=== PATIENT | female | born 1995 | race African-American/Black ===

== ENCOUNTER 2022-06-29 08:38 | Emergency (ER) | payer SELFPAY ==
[2022-06-29 08:53] VITALS: BP 139/110; PULSE 88; RESP 20; TEMP 36.8; O2SAT 100
--- NOTE | 2022-06-29 09:27 | ED.FEMALEGU ---
HPI - Female Genitourinary General Chief complaint: Urogenital-Female Stated complaint: Abdominal Pain/ Time Seen by Provider: 06/29/22 09:27 Source: patient and RN notes reviewed Mode of arrival: ambulatory Limitations: no limitations History of Present Illness HPI Narrative: 27 y/o female presented for c/o mild left abdominal discomfort and pink tinged urine in the setting of positive urine tests (x4) at home 06/24/22. Pt is [id number]. Endorses mild bleeding this morning, stating urine and tissue was pink. Denies n/v/d/f/c. Not taking any medication. Does not have obgyn, does not have blood test confirming . Hx right ovarian cyst found about 3 years ago, states she dc'd IUD due to it increasing in size, but has not f/u. Moved from [place]. Related Data Home Medications Medication Instructions Recorded Confirmed No Home Medications 06/29/22 06/29/22 Allergies Allergy/AdvReac Type Severity Reaction Status Date / Time No Known Allergies Allergy Verified 06/29/22 09:17 Review of Systems Review of Systems: CONSTITUTIONAL: Denies body aches, fever, chills, or sweats. CARDIOVASCULAR: Denies chest pain, palpitations, or edema. RESPIRATORY: Denies cough or dyspnea. GASTROINTESTINAL: Denies nausea, vomiting, or diarrhea. GENITOURINARY: denies dysuria, frequency, urgency, hematuria, flank pain SKIN: Denies rash, itching, or wounds. MUSCULOSKELETAL: Denies back pain or myalgia. PMFSH Comments At time of signature, I have reviewed and agree with nursing past medical, surgical, social and family history unless otherwise noted. Please see nursing chart for further information. There is no relevant family history pertinent to the presenting complaint Exam Narrative: GENERAL: Well-appearing EYES: EOMI. . ENT: Mucous membranes pink and moist. CHEST: Clear to auscultation. HEART: Regular rate and rhythm. ABDOMEN: Soft, large, nontender, nondistended, normal active bowel sounds. No CVA tenderness SKIN: Warm, dry, no rash. NEURO: No focal deficits. Alert and oriented x3. Gait steady. PSYCH: Normal affect. Course Course Emergency Course: Patient is aware of diagnosis, understands and agrees to treatment plan. Anticipatory guidance given. Patient agrees to follow-up as directed and is aware of reasons to seek care at the emergency department. Portions of this record may have been created with voice recognition software Level of Care: Express Care Visit Vital Signs Vital signs: Vital Signs Temperature 98.3 F 06/29/22 08:53 Pulse Rate 88 06/29/22 08:53 Respiratory Rate 20 06/29/22 08:53 Blood Pressure 139/110 H 06/29/22 08:53 Pulse Oximetry 100 06/29/22 08:53 Oxygen Delivery Room Air 06/29/22 08:53 Temperature 98.3 F 06/29/22 08:53 Pulse Rate 88 06/29/22 08:53 Respiratory Rate 20 06/29/22 08:53 Blood Pressure 139/110 H 06/29/22 08:53 Pulse Oximetry 100 06/29/22 08:53 Oxygen Delivery Room Air 06/29/22 08:53 Reviewed Transfer Transfered to: [place] Transportation: Other ([place]) Transfer rationale: Pt is agreeable to transfer. Requests transfer to [facility] via private vehicle/ ambulance. Risks of transportation reviewed with pt including injury, worsening of condition and . v/u. will be driving pt; Report called to hospital, spoke with Dr Gonzalez, accepting physician. Pt is in stable condition at time of transfer. Advised to remain NPO and go directly to the hospital. MDM - Female Genitourinary MDM Narrative Medical decision making narrative: urine preg negative. urine with 3+ blood. Patient is notified of the results. v/u. Patient remains smiling and pleasant throughout the encounter. Given report of 4 positive tests and reported abdominal pain and vaginal bleeding, advised transfer to ER, requests [facility] Differential Diagnosis Differential diagnosis: Likely urinary tract infe
== END 2022-06-29 10:00 | disposition short-term general hospital (02) ==
PROVIDERS: Emergency Provider Nurse Practitioner Family
DX: Z32.02 Encounter for pregnancy test, result negative (principal); N93.9 Abnormal uterine and vaginal bleeding, unspecified
CPT/HCPCS: 81003; 81025; 99212; G0463

== ENCOUNTER 2022-06-29 10:26 | Emergency (ER) | payer SELFPAY ==
--- NOTE | ~2022-06-29 | US_ITS ---
EXAMINATION: US pelvic complete w TV DATE: 06/29/2022 13:18 INDICATION: Spotting. Abdominal cramping. Negative test in the emergency department. TECHNIQUE: Multiple transabdominal and transvaginal sonographic images of the pelvis were obtained. COMPARISON: None. FINDINGS: TRANSABDOMINAL ULTRASOUND: The uterus measures 6.0 x 3.3 x 3.5 cm. There is no free fluid in the pelvis. TRANSVAGINAL ULTRASOUND: The endometrial complex measures 3 mm in thickness. The right ovary measures 3.0 x 2.3 x 2.7 cm. The left ovary measures 2.9 x 1.7 x 2.1 cm. IMPRESSION: 1. Normal pelvis. Reviewed, dictated and finalized at location A. IMPRESSION: 1. Normal pelvis.
[2022-06-29 10:41] VITALS: BP 137/93; PULSE 72; RESP 20; TEMP 36.5; O2SAT 100
[2022-06-29 11:46] LABS: Basophils Percent Auto 0.3 % (0.2-1.2); Eosinophils Absolute Auto 0.1 K/mm3 (0-0.3); Hematocrit 39.6 % (37.0-47.0); Hemoglobin 12.8 g/dL (12.0-15.0); Immature Granulocyte Absolute 0.01 K/mm3 (0.00-0.031); Immature Granulocyte Percent A 0.2 % (0-0.5); Lymphocytes Percent Auto 27.7 % (18.3-44.2); Mean Corpuscular HGB Conc 32.3 g/dl (32-36); Mean Corpuscular Hemoglobin 28.1 pg (26-34); Mean Corpuscular Volume 86.8 fl (80-100); Mean Platelet Volume 11.3 fl (7.4-10.4); Monocytes Absolute Auto 0.4 K/mm3 (0.1-0.6); Monocytes Percent Auto 6.7 % (2.6-8.5); Neutrophils Absolute Auto 3.7 K/mm3 (1.3-6.7); Neutrophils Percent Auto 64.1 % (45.5-73.1); Platelet Count Result 266 k/mm3 (150-375); Red Blood Count 4.56 M/mm3 (4.2-5.4); White Blood Count 5.8 K/mm3 (4.5-10.0)
--- NOTE | 2022-06-29 11:55 | ED.PREGNANCY ---
HPI - General Chief complaint: Vaginal Bleeding Stated complaint: spotting, positive Time Seen by Provider: 06/29/22 11:46 History of Present Illness HPI Narrative: Patient is a 27-year-old female with a history of a previous elective here for evaluation of vaginal spotting in the setting of 4 positive home tests last week. Patient states that she started spotting today and had some left-sided mild cramping. Seen at urgent care, urine there was negative, was sent to ED for blood work. No fevers, chills, nausea, vomiting. Related Data Home Medications Medication Instructions Recorded Confirmed No Home Medications 06/29/22 06/29/22 Allergies Allergy/AdvReac Type Severity Reaction Status Date / Time No Known Allergies Allergy Verified 06/29/22 09:17 Review of Systems Review of Systems: Gen: Denies fevers or chills Eyes: Denies eye pain or visual change ENT: Denies congestion Respiratory: Denies shortness of breath or cough CV: Denies chest pain or palpitations GI: Reports mild abdominal pain. Denies nausea, emesis or diarrhea : reports vaginal spotting. Denies burning, urgency, frequency or hematuria Musculoskeletal: Denies back pain or muscle pain Neuro: Denies numbness, tingling, weakness or focal weakness Skin: Denies rash Except as documented, all other systems reviewed and negative Exam Narrative: APPEARANCE: Well appearing, no pain in distress, well-nourished. Head: Normocephalic and atraumatic. EYES: PERRLA/EOMI, conjunctivae clear NOSE: No nasal drainage EARS: External ear normal in appearance THROAT: Oropharynx is clear. Mucous membranes are moist. NECK: Supple. No adenopathy, no masses. RESPIRATORY: Airway patent, respirations nonlabored. Clear to auscultation bilaterally, no rales, rhonchi, wheezing. CARDIOVASCULAR: Regular rate and rhythm without murmurs, rubs, or gallops. ABDOMINAL: Normoactive bowel sounds. Soft, nontender, nondistended. No rebound tenderness or guarding. MUSCULOSKELETAL: Extremities are warm and well-perfused. Moves all extremities well. No edema. NEURO: Normal speech. No focal neurologic deficits. SKIN: Skin is warm and dry. No rashes. PSYCHIATRIC: Normal affect/mood. Course Vital Signs Vital signs: Vital Signs Temperature 97.7 F 06/29/22 10:41 Pulse Rate 72 06/29/22 10:41 Respiratory Rate 20 06/29/22 10:41 Blood Pressure 137/93 H 06/29/22 10:41 Pulse Oximetry 100 06/29/22 10:41 Oxygen Delivery Room Air 06/29/22 10:41 Temperature 97.7 F 06/29/22 10:41 Pulse Rate 80 06/29/22 13:37 Respiratory Rate 16 06/29/22 13:37 Blood Pressure 142/84 H 06/29/22 13:37 Pulse Oximetry 98 06/29/22 13:37 Oxygen Delivery Room Air 06/29/22 10:41 MDM - OB/Uterine Contractions MDM Narrative Medical decision making narrative: 27-year-old female here for evaluation of vaginal spotting and light vaginal cramping in the setting of positive home test but a negative test at urgent care today. She is nontoxic-appearing and has normal vital signs, no abdominal tenderness on exam. Hemoglobin/ hematocrit are normal. Her urine again is negative. Her quant is very slightly positive at 4.2. Patient is O+, no need for RhoGAM. Pelvic ultrasound does not show any evidence of ectopic . Patient is likely miscarrying. Declined pelvic exam at this time. 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 Lab Data Result diagrams: 06/29/22 11:26 06/29/22 11: Labs: Lab Results 06/29/22 06/29/22 06/29/22 Range/Units 11:26 11:26 11:26 WBC 5.8 (4.5-10.0) K/mm3 RBC 4.56 (4.2-5.4) M/mm3 Hgb 12.8 (12.0-15.0) g/dL Hct 39.6 (37.0-47.0) % MCV 86.8 (80-100) fl MCH 28.1 (26-34) pg MCHC 32.3 (32-36) g/dl RDW 13.0 (11.5-14.5) % Plt Count 266 (150-375) k/mm3 MPV 11.3 H (7.4-10.4) fl Immature
[2022-06-29 11:59] LABS: Anion Gap 13 mmol/L (8-16); Blood Urea Nitrogen 9 mg/dL (7-17); Calcium 8.9 mg/dL (8.4-10.2); Carbon Dioxide 25 mmol/L (22-30); Chloride 101 mmol/L (98-107); Estimated CRCL calculation 113 ml/min; Estimated Glomerular Filt Rate > 60; Glucose 87 mg/dL (65-110); Sodium 139 mmol/L (137-145)
[2022-06-29 13:37] VITALS: BP 142/84; PULSE 80; RESP 16; O2SAT 98
== END 2022-06-29 13:40 | disposition home or self-care (01) ==
PROVIDERS: Emergency Provider Emergency Medicine
DX: N93.9 Abnormal uterine and vaginal bleeding, unspecified (principal)
CPT/HCPCS: 36415; 76830; 76856; 80048; 81025; 84702; 85025; 85461; 86850; 86900; 86901; 99284

== ENCOUNTER 2022-11-15 12:00 | Emergency (ER) | payer MEDICAID, SELFPAY ==
[2022-11-15 12:07] VITALS: BP 144/105; PULSE 93; RESP 20; TEMP 36.3; O2SAT 99
[2022-11-15 12:42] LABS: Add Urine Microscopic? NO; Appearance Urine Clear (Clear); Bilirubin Urine Negative (Negative); Blood Urine Negative (Negative); Color Urine Yellow (Yellow); Glucose Urine UA Negative (Negative); Ketones Urine Negative (Negative); Leukocyte Esterase Ur Negative LEU/UL (Negative); Nitrate Urine Negative (Negative); Protein Urine Negative (Negative); Specific Grav Ur 1.015 (1.001-1.035); Urobilinogen Urine 0.2 mg/dL (<2.0)
--- NOTE | 2022-11-15 14:04 | ED.GENADULT ---
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 She reports her last menstrual cycle was in August. She denies any abdominal pain, fever, bleeding. She reports intermittent nausea. She states that she was here in ER with a friend and so she came to be seen due to lack of period. She reported frequent urination. She has been told in the past that she has ovarian cyst. Related Data Home Medications Medication Instructions Recorded Confirmed No Home Medications 06/29/22 06/29/22 Allergies Allergy/AdvReac Type Severity Reaction Status Date / Time No Known Allergies Allergy Verified 06/29/22 09:17 Review of Systems Constitutional: Constitutional: Denies weakness Cardiovascular: Cardiovascular: Denies syncope, Denies rapid heart rate, Denies irregular heart rhythm, Denies leg edema and Denies dyspnea Respiratory: Respiratory: Denies chest congestion, Denies hemoptysis, Denies excessive phlegm production and Denies dyspnea Gastrointestinal: Gastrointestinal: Denies abdominal pain, Denies hematochezia, Denies diarrhea and Denies vomiting Genitourinary: Genitourinary: Denies hematuria and Denies dysuria Musculoskeletal: Musculoskeletal: Denies joint swelling, Denies loss of height and Denies muscle weakness Neurologic: Denies syncope, Denies focal weakness and Denies weakness PMFSH Past Medical History Medical History (Updated 11/15/22 @ 14:12 by Annemarie Cabrales MD) Ovarian cyst Surgical History Surgical History (Updated 11/15/22 @ 14:09 by Annemarie Cabrales MD) No pertinent past surgical history Social History Social History (Updated 11/15/22 @ 14:09 by Annemarie Cabrales MD) Smoking status: Never smoker Exam Const: General: no acute distress and alert Nutritional Appearance: well nourished Orientation/consciousness: patient oriented x3 HENMT: Head: normal to inspection Eyes: EOM: EOMs intact bilaterally Resp: Effort & Inspection: normal respiratory effort Auscultation: clear to auscultation bilaterally Cardio: Rate: regular rate Rhythm: regular rhythm Heart sounds: no murmurs GI: GI Palp: Yes Soft to palpation, No Tenderness to palpation present (GI), No Guarding due to palpation present (GI) and No Rigid due to palpation Auscultation: normal bowel sounds Skin: General skin exam: normal color Rashes: no rashes Wounds: no wounds Neuro: General: patient oriented x3, moves all extremities and CN's II-XI intact bilaterally Extrem: General: normal to inspection Psych: Mental Status: mental status grossly normal Affect: normal affect Attitude: cooperative Course Reevaluation(s) Reevaluation #1: Patient does not have any pain. test negative. She may have ovarian cyst but she is not having any pain so will have follow up as outpatient with [employer]IST. she is agreeable to plan Date: 11/15/22 Time: 14:09 Vital Signs Vital signs: Vital Signs Temperature 97.3 F L 11/15/22 12:07 Pulse Rate 93 11/15/22 12:07 Respiratory Rate 20 11/15/22 12:07 Blood Pressure 144/105 H 11/15/22 12:07 Pulse Oximetry 99 11/15/22 12:07 Oxygen Delivery Room Air 11/15/22 12:07 Temperature 97.3 F L 11/15/22 12:07 Pulse Rate 93 11/15/22 12:07 Respiratory Rate 20 11/15/22 12:07 Blood Pressure 144/105 H 11/15/22 12:07 Pulse Oximetry 99 11/15/22 12:07 Oxygen Delivery Room Air 11/15/22 12:07 Medical Decision Making Vital Signs Vital Signs: Vital Signs Temperature 97.3 F L 11/15/22 12:07 Pulse Rate 93 11/15/22 12:07 Respiratory Rate 20 11/15/22 12:07 Blood Pressure 144/105 H 11/15/22 12:07 Pulse Oximetry 99
--- NOTE | 2022-11-15 14:05 | PC.NURSE ---
Dr. lockhart to er triage bay 2 to see patient.
== END 2022-11-15 14:25 | disposition home or self-care (01) ==
LOC: ANHED 14:18
PROVIDERS: Emergency Provider General Practice
DX: N91.2 Amenorrhea, unspecified (principal)
CPT/HCPCS: 81003; 81025; 99283

== ENCOUNTER 2023-01-17 11:45 | Emergency (ER) | payer OTHER, MEDICAID, SELFPAY ==
[2023-01-17 11:48] VITALS: BP 144/77; PULSE 112; RESP 20; TEMP 36.2; O2SAT 98
--- NOTE | 2023-01-17 12:24 | ED.URI ---
HPI - URI/Sore Throat General Chief Complaint: Upper Respiratory Infection Stated Complaint: cough Time Seen by Provider: 01/17/23 12:23 Source: patient Mode of arrival: ambulatory Limitations: no limitations History of Present Illness HPI Narrative: Patient presents with cold symptoms started 2 to 3 days ago, step daughter had similar symptoms got better in 2 days, her main complaint at this time is coughing and sore throat. Patient could not go to work today. Related Data Allergies Allergy/AdvReac Type Severity Reaction Status Date / Time No Known Allergies Allergy Verified 06/29/22 09:17 Review of Systems Review of Systems: All systems reviewed & are unremarkable except as noted in HPI and below PMFSH Past Medical History Medical History Ovarian cyst Surgical History Surgical History No pertinent past surgical history Social History Social History Smoking status: Never smoker Exam Narrative: General appearance: Well-developed, well-nourished Skin: Normal color Head: Normocephalic, nontraumatic Eyes: Clear conjunctiva ENT: Oropharynx normal, ears normal, nose normal Neck: Supple, nontender Chest and respiratory: Airway patent, no respiratory distress, no accessory muscle use Heart: Regular rate/rhythm Abdomen: Soft, nontender, no organomegaly, quiet bowel sounds Vascular: Normal peripheral pulses, normal capillary refill. Musculoskeletal: Normal range of motion, nontender back Neurologic: Alert and oriented ?3, GLOBAL COORDINATOR is normal as tested, no gross motor deficit Course Vital Signs Vital signs: Vital Signs Temperature 36.2 C L 01/17/23 11:48 Pulse Rate 112 H 01/17/23 11:48 Respiratory Rate 20 01/17/23 11:48 Blood Pressure 144/77 H 01/17/23 11:48 Pulse Oximetry 98 01/17/23 11:48 Oxygen Delivery Room Air 01/17/23 11:48 Temperature 36.2 C L 01/17/23 11:48 Pulse Rate 112 H 01/17/23 11:48 Respiratory Rate 20 01/17/23 11:48 Blood Pressure 144/77 H 01/17/23 11:48 Pulse Oximetry 98 01/17/23 11:48 Oxygen Delivery Room Air 01/17/23 11:48 MDM - URI/Sore Throat MDM Narrative Medical decision making narrative: Patient presents with upper respiratory viral infection symptoms, recent sick contact, work-up today showed that the patient is negative for COVID, flu and RSV. Patient will be discharged on Mucinex and excused of work today and tomorrow. Differential Diagnosis Differential diagnosis: Likely upper respiratory infection and viral infection Lab Data Labs: Lab Results 01/17/23 Range/Units 12:31 Influenza A (RT-PCR) Negative (Negative) Influenza B (RT-PCR) Negative (Negative) RSV (RT-PCR) Negative (Negative) SARS-CoV-2 RNA (RT-PCR) Negative (Negative) Critical Care Time Critical Care Time Critical Care Time: No Discharge Plan Discharge Clinical Impression: Upper respiratory infection Qualifiers: URI type: unspecified URI Qualified Code(s): J06.9 - Acute upper respiratory infection, unspecified Patient Disposition: Home, Self-Care Condition: Stable Instructions: Antibiotic Form, Cold Symptoms (ED) Additional Instructions: Return if symptoms are worsening , call your family physician for appointment, take Tylenol as as needed for aches and pain, continue home medications. Prescriptions: New Mucinex Fast-Max [id number] mg capsule 2 tablet PO Q4-6H PRN (Reason: cold symptoms) Qty: 90 0RF Follow-up/Referrals: PHYSICIAN,ICT SALES REPRESENTATIVE [Non-Staff] - Blaine Márquez,
[2023-01-17 13:34] LABS: Influenza A QL RT-PCR Negative (Negative); Influenza B QL RT-PCR Negative (Negative); RSV RNA, RT-PCR Negative (Negative); SARS-CoV-2 RNA PCR Negative (Negative)
[2023-01-17 13:59] VITALS: BP 137/93; PULSE 91; O2SAT 100
== END 2023-01-17 14:13 | disposition home or self-care (01) ==
PROVIDERS: Emergency Provider Emergency Medicine
DX: J06.9 Acute upper respiratory infection, unspecified (principal); Z20.822 Contact with and (suspected) exposure to COVID-19
CPT/HCPCS: 87637; 99283

== ENCOUNTER 2024-10-08 13:03 | Emergency (ER) | payer OTHER, SELFPAY ==
--- NOTE | ~2024-10-08 | US_ITS ---
EXAM: PELVIC ULTRASOUND HISTORY: left cyst r/o torsion COMPARISON: CT examination of the abdomen and pelvis, performed the same day approximately 1 hour ear lier. FINDINGS: UTERUS: 9.1 x 3.8 x 4.2 cm. The uterus is anteverted and anteflexed. The endometrial complex measures 9.7 mm. RIGHT OVARY: The right ovary is unremarkable in echogenicity and size measuring 2.8 x 2.2 x 4.2 cm. Dopplerable flow is identified. LEFT OVARY: The left ovary measures 5.6 x 3.7 x 4.3 cm Dopplerable flow is identified. A single anechoic avascular focus is identified within the left ovary measuring 37 x 32 x 36 mm, repr esenting a simple cyst (perhaps an involuting follicle) for which no further follow-up is needed. No free fluid is identified within the pelvis. IMPRESSION: Simple cyst within the left ovary for which no further follow-up is needed. Reviewed, dictated and finalized at location A. E MOUNTER
--- NOTE | ~2024-10-08 | CT_ITS ---
EXAMINATION: CT abdomen pelvis wo con DATE: 10/08/2024 14:58 INDICATION: Abdominal pain at section scar. TECHNIQUE: Computed tomography (CT) of the abdomen and pelvis was performed without intravenous contr ast. Automated exposure control and iterative reconstruction technique were employed. The dose-length product was 1311.68 mGy-cm. COMPARISON: Pelvis ultrasound 06/29/2022 FINDINGS: The visualized portions of the lung bases are clear without pneumonia or pleural effusion. The heart size is normal. No pericardial effusion. The liver, gallbladder, spleen, pancreas, adrenal glands, and kidneys are normal. There are no dilated loops of bowel. The appendix is normal. There is a 4.1 cm cyst in the left ovary. The left ovary is anteriorly positioned at the midline. There are n o pathologically enlarged lymph nodes. There is no ascites. The bones are unremarkable. IMPRESSION: 1. 4.1 cm cyst in the left ovary, likely a follicular cyst. Torsion is not excluded. Consider pelvis ultrasound. Reviewed, dictated and finalized at location A. L DRIVER IMPRESSION: 1. 4.1 cm cyst in the left ovary, likely a follicular cyst. Torsion is not excl uded. Consider pelvis ultrasound.
--- OUTSIDE RECORDS SUMMARY | 2024-10-08 13:52 | XMS_ITS | Clinical Summary ---
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 Name Role Phone Leela Osborne DO Unavailable [phone] No, Physician Primary Care Provider [phone] Allergies No known active allergies Medications ondansetron ODT (ZOFRAN-ODT) 4 mg disintegrating tablet Take 1 tablet (4 mg total) by mouth every 8 (eight) hours as needed for nausea or vomiting 30 tablet 1 05/09/20 23 Active vit no.124/iron/folic ( VITAMIN ORAL) Take by mouth Active docusate sodium (COLACE) 100 mg capsuleIndications :constipation,Stoo l Softener Take 1 capsule (100 mg total) by mouth 2 (two) times a day 60 capsule 1 11/19/19 24 Active HYDROcodone-acetam inophen (NORCO) 5-325 mg per tabletIndications: Pain Take 1 tablet by mouth every 4 (four) hours as needed for pain 20 tablet 11/19/19 24 Active ibuprofen (ADVIL,MOTRIN) 600 mg tabletIndications: Cramps Take 1 tablet (600 mg total) by mouth every 6 (six) hours as needed for pain 60 tablet 1 11/19/19 24 Active promethazine-DM (PROMETHAZINE-DM) 1.25-3 mg/mL syrupIndications:A cute viral syndrome Take 5 mL by mouth 4 (four) times a day as needed for cough (And runny nose) Collaborating physician Romeo Lainez MD 118 mL 05/21/20 Active naproxen (NAPROSYN) 500 mg tabletIndications: Acute viral syndrome Take 1 tablet (500 mg total) by mouth 2 (two) times a day with meals P.r.n. pain and/or fever. Collaborating physician Romeo Lainez MD 20 tablet 05/21/20 Active guaiFENesin (ROBITUSSIN) syrup 100 mg/5 mL Take 5-10 mL (100-200 mg total) by mouth every 4 (four) hours as needed for cough 60 mL 06/24/20 Active Active Problems Problem Noted Date Diagnosed Date Acute viral syndrome 05/21/2024 Failed medical induction of labor 11/07/2023 growth restriction antepartum 10/19/2023 Class 3 severe obesity witho ut serious comorbidity with body mass index (BMI) of 40.0 to 44.9 in adult 06/16/2023 Assessment & Plan (06/16/2023 4:59 PM CDT): Doing well. BMI: 43.4 Obese) Dietary and exercise recommendations given today. Recommend exercise at least 30 minutes moderate to vigorous exercise and some strength training most days of the week. (minimum 150 minutes weekly) Discussed MyPlate recommendations and increasing fruits and vegetables Should continue to eat smaller portions. Goal for weight gain during <10lbs Rubella non-immune status, antepartum 05/11/2023 Overview (05/11/2023): Plan for MMR PP Maternal varicella, non-immune 05/11/2023 Encounter for supervision of normal in first trimester 05/09/2023 Overview (10/19/2023): Dated by 9w6d PNL: O+/NI/-/-, NR, Hep C NR GC/CT: neg UCx: neg Pap: NILM Genetics: neg quad Cyst of ovary 03/15/2023 Assessment & Plan (03/15/2023 5:23 PM CDT): History of ovarian cyst. Will order ultrasound to re-evaluate. Patient has been referred to gynecology for fertility concerns, routine Pap and ovarian cyst Resolved Problems Problem Noted Date Diagnosed Date Resolved Date Acute viral syndrome 05/05/2023 023 Folliculitis 03/21/2023 05/09/2023 Assessment & Plan (03/21/2023 3:24 PM CDT): Bump ro R breast larger and more painful in last 2 weeks. Assessment as noted above. Rxd Keflex as directed. Keep skin clean and dry. Warm compresses may help also. Call if symptoms do not resolve with keflex. Annual physical exam 03/15/2023 023 Assessment & Plan (03/15/2023 5:24 PM CDT): Doing well. BMI: 43.4 (Obese) Routine labs ordered -BMP, Lipid, TSH, varicella titer Preventative Screening Due: Pap Smear due referred to [facility] Dietary and exercise recommendations given today. Recommend exercise at least 30 minutes moderate to vigorous exercise and some strength training most days of the week. (minimum 150 minutes weekly) Discussed MyPlate recommendations and increasing fruits and vegetables Vaccines due - TDAP, HPV RTC annually for f/u Obesity affecting in first trimester 03/15/2023 11/16/2023 Overview (05/09/2023): BMI 43 at NOB. Moderate risk factor for Pre-E as is being a nullip. Discussed ASA for Pre-E PPx, to begin at 12 weeks. Will need serial growth ultrasounds and testing beginning at 34 weeks. Encounters Date Type Department Care Team Description 08/04/2024 12:20 AM TOOLROOM CHECKER - 08/04/2024 3:52 AM TOOLROOM CHECKER Emergency [facility] Emergency Department [address] [place] [address] Fredo Childress MD Acute left-sided back pain, unspecified back location (Primary Dx) Discharge Disposition: Discharge to home or self care from Last 3 Months Immunizations Name Administration Dates Next Due MMR 11/19/2023 Medical History Medical History Date Comments Obesity Obesity affecting in first trimester BMI 43 at NOB. Moderate risk factor for Pre-E as is being a nullip. Discussed ASA for Pre-E PPx, to begin at 12 weeks. Will need serial growth ultrasounds and testing beginning at 34 weeks. Social History Tobacco Use Types Packs/Day Years Used Date Smoking Tobacco: Never Passive Smoke Exposure: Past Smokeless Tobacco: Never Tobacco Cessation:Counseling Given: Not Answered Alcohol Use Standard Drinks/Week Comments Yes 0 (1 standard drink = 0.6 oz pur e alcohol) Social Connection and Isolat ion Panel [NHANES] Answer Date Recorded In a typical week, how many times do you talk on the phone with family, friends, or neighbors? More than three times a week 11/15/2023 How often do you get togethe r with friends or relatives? More than three times a week 11/15/2023 How often do you attend chur or scientology services? Patient declined 11/15/2023 Do you belong to any clubs o r organizations such as shinto groups, unions, fraternal or athletic groups, or school groups? Patient declined 11/15/2023 How often do you attend meet ings of the clubs or organizations you belong to? Patient declined 11/15/2023 Are you , , di vorced, , never , or living with a partner? Living with partner 11/15/2023 AUDIT-C Answer Date Recorded Q1: How often do you have a drink containing alcohol? Never 11/15/2023 Q2: How many drinks containi ng alcohol do you have on a typical day when you are drinking? Patient does not drink Q3: How often do you have si x or more drinks on one occasion? Never 11/15/2023 Overall Financial Resource Strain (CARDIA) Answe r Date Recorded How hard is it for you to pa y for the very basics like food, housing, medical care, and heating? Somewhat hard 11/15/2023 PHQ-2 Answer Date Recorded PHQ-2 Total Score (If total score is 3 or more points, staff should administer the PHQ-9) 0 11/15/2023 [facility] - Occupational Stress Questionnaire Answer Date Recorded Do you feel stress - tense, restless, nervous, or anxious, or unable to sleep at night because your mind is troubled all the time - these days? Not at all 11/15/2023 Exercise Vital Sign Answer Date Recorde d On average, how many days pe r week do you engage in moderate to strenuous exercise (like a brisk walk)? 0 days 11/15/2023 On average, how many minutes do you engage in exercise at this level? 0 min 11/15/2023 Hunger Vital Sign Answer Date Recorded Within the past 12 months, y ou worried that your food would run out before you got the money to buy more. Never true 11/15/19 24 Within the past 12 months, t he food you bought just didn't last and you didn't have money to get more. Never true 11/15/2023 PRAPARE - Transportation Answer Date Re corded In the past 12 months, has l ack of transportation kept you from medical appointments or from getting medications? No 10/27 In the past 12 months, has l ack of transportation kept you from meetings, work, or from getting things needed for daily living? No 11/15/2023 Housing Stability Vital Sign Answer Liam e Recorded In the last 12 months, was t here a time when you were not able to pay the mortgage or rent on time? No 11/15/2023 In the last 12 months, how many places have you lived? 1 11/15/2023 In the last 12 months, was t here a time when you did not have a steady place to sleep or slept in a care home (including now)? No 11/15/2023 Gregory Depression Scale Answer Date Recorded Gregory Depression Scale Total 0 01/01/2024 The thought of harming myself has occurred to me . Never 01/01/2024 Personal Safety Answer Date Recorded Have you ever been in or are you currently in a harmful physical or emotional relationship or is someone making you feel afraid or unsafe? Denies 08/03/2024 Comments No Sex and Gender Information Value Date Recorded Sex Assigned at Not on file Legal Sex Female 12:53 PM CDT Gender Identity Not on file Sexual Orientation Not on file Occupation Industry Job Start Date Job End Date [employer] Not on file Not on file Not on file Obstetrics History Para Term AB IAB SAB Ectopic Multiple Livin g Live Births 3 1 1 2 1 1 0 1 1 Date Outcome GA Total Labor Labor/2nd/3rd Weight Sex Type Anes PTL Margie A1 A5 Name Clin 2019 IAB 6w0 d D&C 2021 SAB 8w0 d SAB 2023 Term 37w 2d 0h 02m 0h 02m 2.165 kg (4 lb 12.4 oz) M C-Sec tion Spinal N Livin g 8 9 Leela Vasquez, DO Complications:Failure to Pro viridiana in First Stage Delivery Location:This Facil ity ([facility] D PROCEDURE) Last Filed Vital Signs Vital Sign Reading Time Taken Comments Blood Pressure 138/70 08/03/2024 11:41 PM TOOLROOM CHECKER Pulse 88 08/03/2024 11:41 PM TOOLROOM CHECKER Temperature 37.2 C (99 F) 08/03/2024 11:41 PM TOOLROOM CHECKER Respiratory Rate 18 08/03/2024 11:41 PM TOOLROOM CHECKER Oxygen Saturation 98% 08/03/2024 11:41 PM TOOLROOM CHECKER Inhaled Oxygen Concentration - - Weight 127 kg (280 lb) 08/03/2024 11:41 PM TOOLROOM CHECKER Height 170.2 cm (5' 7 ) 08/03/2024 11:41 PM TOOLROOM CHECKER Body Mass Index 43.85 08/03/2024 11:41 PM TOOLROOM CHECKER Plan of Treatment Health Maintenance Due Date Last Done Comments DTaP/Tdap/Td Vaccine (1 - Tdap) 2007 Varicella Vaccines (1 of 2 - 13+ 2-dose series) 2009 Hepatitis B Screening 2014 Regular Well Visit/Exam 18-64 03/15/2024 03/15/2023 Influenza Vaccine (#1) 2024 Cervical Cancer Screening 05/09/2024 05/09/2023 Depression Screening 12/31/2024 01/01/2024, 11/07/2023, 08/26/2023, Additional history exists Hepatitis C Screening Completed 05/09/2023 HPV Vaccines Aged Out No longer eligi ble based on patient's age to complete this topic Pneumococcal vaccine <65 Aged Out No longer eligible based on patient's age to complete this topic Procedures Procedure Name Priority Date/Time Associated Diagnosis Comments XR SHOULDER LEFT 2 OR MORE VIEWS ED 08/04/2024 1:10 AM TOOLROOM CHECKER XR HAND LEFT 3 OR MORE VIEWS ED 08/04/2024 1:10 AM TOOLROOM CHECKER HEPATITIS C ANTIBODY Routine 05/09/2023 1:58 PM CDT Encounter for supervision of normal first in first trimester 9 weeks gestation of PAP WITH REFLEX TO HIGH RISK HPV Routine 05/09/2023 10:34 AM CDT Screening for malignant neoplasm of cervix from Last 3 Months or Most Recently Relevant to Health Maintenance Results * XR Hand Left 3 or More Views (08/04/2024 1:10 AM TOOLROOM CHECKER) Anatomical Region Laterality Modality Upper Extremities, Hand Left Computed Radiography 08/04/2024 1:17 AM TOOLROOM CHECKER Narrative 08/04/2024 1:18 AM TOOLROOM CHECKER EXAM DESCRIPTION: XR HAND LEFT 3 OR MORE VIEWS REASON FOR STUDY: accidental fall Fall Down Stairs on Monday Night. Some numbness from time to time. TECHNIQUE: Frontal, oblique, and lateral views of the left hand . COMPARISON: None FINDINGS: BONES/JOINTS: No fracture, malalignment, or suspicious osseous lesion is identified. Joint spaces are preserved. SOFT TISSUES: Unremarkable. IMPRESSION: No fracture or malalignment identified. THIS IS AN ELECTRONICALLY VERIFIED FINAL REPORT 08/04/2024 1:18 AM - Electronically signed by Capo Ceballos M.D. AR: MONALISA Report ID: [id number] Reading Location: [id number] Procedure Note Capo Ceballos MD - 08/04/2024 EXAM DESCRIPTION: XR HAND LEFT 3 OR MORE VIEWS REASON FOR STUDY: accidental fall Fall Down Stairs on Monday Night. Some numbness from time to time. TECHNIQUE: Frontal, oblique, and lateral views of the left hand . COMPARISON: None FINDINGS: BONES/JOINTS: No fracture, malalignment, or suspicious osseous lesion is identified. Joint spaces are preserved. SOFT TISSUES: Unremarkable. IMPRESSION: No fracture or malalignment identified. THIS IS AN ELECTRONICALLY VERIFIED FINAL REPORT 08/04/2024 1:18 AM - Electronically signed by Capo Ceballos M.D. AR: MONALISA Report ID: [id number] Reading Location: [id number] Fredo Childress MD IMG XR PROCEDURES Final Resul t * XR Shoulder Left 2 or More Views (08/04/2024 1:10 AM TOOLROOM CHECKER) Anatomical Region Laterality Modality Upper Extremities, Shoulder Left Comp uted Radiography 08/04/2024 1:18 AM TOOLROOM CHECKER Narrative 08/04/2024 1:18 AM TOOLROOM CHECKER EXAM DESCRIPTION: XR SHOULDER LEFT 2 OR MORE VIEWS REASON FOR STUDY: accidental fall Fall Down Stairs on Monday Night. Some Numbness in left arm from time to time. TECHNIQUE: Internal rotation, external rotation, and Y views of the shoulder. COMPARISON: None FINDINGS: BONES/JOINTS: No fracture, malalignment, or suspicious osseous lesion is identified. Glenohumeral and acromioclavicular joints unremarkable. Subacromial space and coracoclavicular distance appear normal. Visualized ribs and spine intact. SOFT TISSUES: Unremarkable. IMPRESSION: No fracture or malalignment identified. THIS IS AN ELECTRONICALLY VERIFIED FINAL REPORT 08/04/2024 1:18 AM - Electronically signed by Capo Ceballos M.D. AR: MONALISA Report ID: [id number] Reading Location: [id number] Procedure Note Capo Ceballos MD - 08/04/2024 EXAM DESCRIPTION: XR SHOULDER LEFT 2 OR MORE VIEWS REASON FOR STUDY: accidental fall Fall Down Stairs on Monday Night. Some Numbness in left arm from time to time. TECHNIQUE: Internal rotation, external rotation, and Y views of the shoulder. COMPARISON: None FINDINGS: BONES/JOINTS: No fracture, malalignment, or suspicious osseous lesion is identified. Glenohumeral and acromioclavicular joints unremarkable. Subacromial space and coracoclavicular distance appear normal.Visualized ribs and spine intact. SOFT TISSUES: Unremarkable. IMPRESSION: No fracture or malalignment identified. THIS IS AN ELECTRONICALLY VERIFIED FINAL REPORT 08/04/2024 1:18 AM - Electronically signed by Capo Ceballos M.D. Capo Ceballos M.D. AR: MONALISA Report ID: [id number] Reading Location: [place] [id number] [place] Fredo Childress MD IMG XR PROCEDURES Final Resul t * Hepatitis C antibody Blood (05/09/2023 1:58 PM CDT) Hep C Ab Nonreactive Nonreactive Comment: Interpretive Data Nonreactive: Antibodies to HCV not detected. Does NOT exclude the possibility of recent exposure to HCV. Equivocal: Equivocal for HCV antibodies. Supplemental molecular testing will be automatically performed to determine infection status in accordance with current CDC screening recommendations. Reactive: Positive for HCV antibodies. This may represent current or past HCV infection. Supplemental molecular testing will be automatically performed to determine current infection status in accordance with current CDC screening recommendations. Interpretive data was last revised on 2019. Blood 05/09/2023 1:58 PM CDT 05/09/2023 7:39 PM CDT us Leela Osborne DO LAB MICROBIOLOGY - GENE RAL ORDERABLES Final Result [facility] Department [place] [address] * Pap with reflex to High Risk HPV and Genotyping (Cytology Component) (05/09/2023 10:34 AM CDT) Thin prep (Pap test) 05/09/2023 10:34 AM CDT 05/09/2023 10:34 AM CDT Narrative PATHOLOGY CH - 05/11/2023 11:00 AM CDT [facility] Department of Pathology [address] [place] [address] Final Report Note to Patients: This report may contain a detailed description of human tissue sent by a health care provider to the laboratory for pathologic evaluation. The content of this report is essential for diagnosis and may provide important critical findings. This information may be unfamiliar to patients to review without a medical professional present. It is advised that the patient review this report in the presence of a health care provider who can answer questions and explain the details. Patient Name: NANETTE MONTANA Address: [address] [place] [address] Gender: F : 1995 (Age: 27) Service: Location: N : [id number] [facility] #: [id number] Patient Type: SPECIMEN Taken: 05/09/2023 Received: 05/09/2023 Accessioned:: 05/10/2023 Reported: 05/11/2023 Physician(s): Chasity Daniels D.O. Diagnosis: SOURCE OF SPECIMEN Imaged Thinprep Pap Test w/ Reflex HPV - [facility] Cytologic Material: STATEMENT OF ADEQUACY - Specimen satisfactory for interpretation; endocervical/transformation zone component absent or insufficient GENERAL CATEGORIZATION: - Negative for intraepithelial lesion or malignancy ELICEO Norwood(ASCP) Report Electronically Reviewed and Signed Out By ELICEO Norwood(ASCP) 05/11/2023 11:00:49Specimen(s) Received: A: Imaged Thinprep Pap Test w/ Reflex HPV - [facility] Cytologic Material Clinical History: Last Menstrual Period: 03/10/23 The Pap test is a screening test used to aid in the detection of cervical cancer and its precursors. It should not be the sole means by which malignant and premalignant lesions are diagnosed. Both false negative and false positive results may occur. It also has poor sensitivity for the detection of endometrial lesions and should not be used to evaluate suspected endometrial abnormalities. For these reasons it is most important to obtain Pap tests at regular intervals. The performance characteristics of some immunohistochemical stains, fluorescence in-situ hybridization tests and immunophenotyping by flow cytometry cited in this report (if any) were determined by the Surgical Pathology Department at [facility] as part of an ongoing quality control specialist program and in compliance with federally mandated regulations drawn from the Clinical Laboratory Improvement Act of 1988 (CLIA '88). Some of these tests rely on the use of analyte specific reagents and are subject to specific labeling requirements by the US Food and Drug Administration. Such diagnostic tests may only be performed in a facility that is certified by the Department of Health and Human Services as a high complexity laboratory under CLIA '88. The FDA has determined that such clearance or approval is not necessary. This test is used for clinical purposes. It should not be regarded as investigational or for research. Nevertheless, federal rules concerning the medical use of analyte specific reagents require that the following disclaimer be attached to the report: This test was developed and its performance characteristics determined by the Surgical Pathology Department [facility]. It has not been cleared or approved by the U. S. Food and Drug Administration. Leela Osborne DO LAB CYTOLOGY ORDERABLES Final Result [facility] [address] [place] [address] from Last 3 Months or Most Recently Relevant to Health Maintenance Insurance [facility] Advance Directives For more information, please contact: [phone] * Full Code (Latest Code Status on File) Date Activated Date Inactivated Comments 11/17/2023 2:49 PM 11/19/2023 7:30 PM * Full Code Date Activated Date Inactivated Comments 11/15/2023 10:22 PM 11/17/2023 2:49 PM Full CPR in case of cardiopulmonary arrest Care Teams Electric Tool Repairer Relationship Specialty Start Date End Date No, Physician PCP - General 05/21/24 Leela Osborne DO [address] [place] [address] Consulting Physician Obstetrics and Gynecology 11/19/23
--- OUTSIDE RECORDS SUMMARY | 2024-10-08 13:52 | XMS_ITS | Referral Summary ---
Author Organization [facility] [address] [address] Address [address] [place] [address] Phone Care Team Providers Care Front Of House Manager Name Role Phone Leela Osborne DO Unavailable No, Physician Primary Care Provider [phone] Encounters Date Type Department Care Team Description 08/04/2024 12:20 AM WHARF TALLY CLERK - 08/04/2024 3:52 AM [facility] Emergency [facility] Emergency Department [address] [place] [address] Fredo Childress MD Acute left-sided back pain, unspecified back location (Primary Dx) Discharge Disposition: Discharge to home or self care from Last 3 Months Allergies No known active allergies Medications ondansetron [...] as needed for pain 20 tablet 11/19/19 Active ibuprofen (ADVIL,MOTRIN) 600 mg tabletIndications: Cramps Take 1 tablet (600 mg total) by mouth every 6 (six) hours as needed for pain 60 tablet 1 11/19/19 Active promethazine-DM (PROMETHAZINE-DM) 1.25-3 mg/mL syrupIndications:A cute [...] Screening Due: Pap Smear due referred to Artificial Breeding Technician Dietary and exercise recommendations given today. Recommend [...] ultrasounds and testing beginning at 34 weeks. Immunizations Name Administration Dates Next Due MMR 11/19/2023 Social History Tobacco Use Types Packs/Day Years [...] How often do you attend chur or sabianism services? Patient declined 11/15/2023 Do you belong to any clubs o r organizations such as quaker groups, unions, fraternal or athletic groups, or [...] staff should administer the PHQ-9) 0 11/15/2023 [facility] Occupat ional Health - Occupational Stress [...] place to sleep or slept in a long term (including now)? No 11/15/2023 [place] Depression Scale Answer Date Recorded [place] Depression Scale Total 0 01/01/2024 The thought [...] file Not on file Not on file Last Filed Vital Signs Vital Sign Reading Time Taken Comments Blood Pressure 138/70 08/03/2024 11:41 PM WHARF TALLY CLERK Pulse 88 08/03/2024 11:41 PM WHARF TALLY CLERK Temperature 37.2 C (99 F) 08/03/2024 11:41 PM WHARF TALLY CLERK Respiratory Rate 18 08/03/2024 11:41 PM WHARF TALLY CLERK Oxygen Saturation 98% 08/03/2024 11:41 PM WHARF TALLY CLERK Inhaled Oxygen Concentration - - Weight 127 kg (280 lb) 08/03/2024 11:41 PM WHARF TALLY CLERK Height 170.2 cm (5' 7 ) 08/03/2024 11:41 PM WHARF TALLY CLERK Body Mass Index 43.85 08/03/2024 11:41 PM WHARF TALLY CLERK Plan of Treatment Not on file Procedures Procedure Name Priority Date/Time Associated Diagnosis Comments XR SHOULDER LEFT 2 OR MORE VIEWS ED 08/04/2024 1:10 AM WHARF TALLY CLERK XR HAND LEFT 3 OR MORE VIEWS ED 08/04/2024 1:10 AM WHARF TALLY CLERK HEPATITIS C ANTIBODY Routine 05/09/2023 1:58 PM CDT Encounter for supervision of normal first in first trimester 9 weeks gestation of PAP WITH REFLEX TO HIGH RISK HPV Routine 05/09/2023 10:34 AM CDT Screening for malignant neoplasm of cervix from Last 3 Months or Most Recently Relevant to Health Maintenance Results * XR Hand Left 3 or More Views (08/04/2024 1:10 AM WHARF TALLY CLERK) Anatomical Region Laterality Modality Upper Extremities, Hand Left Computed Radiography 08/04/2024 1:17 AM WHARF TALLY CLERK Narrative 08/04/2024 1:18 AM WHARF TALLY CLERK EXAM DESCRIPTION: XR HAND LEFT 3 OR [...] Capo Ceballos M.D. AR: MONALISA Report ID: [id number] Reading Location: [id number] Procedure Note Capo Ceballos MD - 08/04/2024 [...] Capo Ceballos M.D. AR: MONALISA Report ID: [id number] Reading Location: [id number] us Fredo Childress MD IMG XR PROCEDURES Final Resul t * XR Shoulder Left 2 or More Views (08/04/2024 1:10 AM WHARF TALLY CLERK) Anatomical Region Laterality Modality Upper Extremities, Shoulder Left Comp uted Radiography 08/04/2024 1:18 AM WHARF TALLY CLERK Narrative 08/04/2024 1:18 AM WHARF TALLY CLERK EXAM DESCRIPTION: XR SHOULDER LEFT 2 OR [...] Capo Ceballos M.D. AR: MONALISA Report ID: [id number] Reading Location: [id number] Procedure Note Capo Ceballos MD - 08/04/2024 [...] Capo Ceballos M.D. AR: MONALISA Report ID: [id number] Reading Location: [id number] us Fredo Childress MD IMG XR PROCEDURES [...] MICROBIOLOGY - GENE RAL ORDERABLES Final Result [facility] [address] Department [place] [address] * Pap with reflex to High Risk HPV and Genotyping (Cytology Component) (05/09/2023 10:34 AM CDT) Thin prep (Pap test) 05/09/2023 10:34 AM CDT 05/09/2023 10:34 AM CDT Narrative PATHOLOGY CH - 05/11/2023 11:[address] [facility] Department of Pathology [address] [place], [place] [id number] Final Report Note to Patients: This report [...] questions and explain the details. Patient Name: SVETA MONTANA Address: [address] [place] [address] Gender: F : 1995 (Age: 27) Service: Location: N : [id number] [facility] #: [id number] Patient Type: SPECIMEN Taken: 05/09/2023 Received: 05/09/2023 Accessioned:: 05/10/2023 Reported: 05/11/2023 Physician(s): Chasity Daniels D.O. Diagnosis: SOURCE OF SPECIMEN Imaged Thinprep Pap Test w/ Reflex HPV - Artificial Breeding Technician Cytologic Material: STATEMENT OF ADEQUACY - Specimen satisfactory for interpretation; endocervical/transformation zone component absent or insufficient GENERAL CATEGORIZATION: - Negative for intraepithelial lesion or malignancy ELICEO Norwood(ASCP) Report Electronically Reviewed and Signed Out By ELICEO Norwood(ASCP) 05/11/2023 11:00:49Specimen(s) Received: A: Imaged Thinprep Pap Test w/ Reflex HPV - Artificial Breeding Technician Cytologic Material Clinical History: Last Menstrual Period: [...] determined by the Surgical Pathology Department at [facility] as part of an ongoing quality analyst/technical writer program and in compliance with federally mandated [...] characteristics determined by the Surgical Pathology Department [facility]. It has not been cleared or approved by the U. S. Food and Drug Administration. Leela Osborne DO LAB CYTOLOGY ORDERABLES Final Result PATHOLOGY [address] [place] [address] from Last 3 Months or Most Recently Relevant to Health Maintenance Insurance [facility] Advance Directives For more information, please contact: [phone] * Full Code (Latest Code Status on File) Date Activated Date Inactivated Comments 11/17/2023 2:49 PM 11/19/2023 7:30 PM * Full Code Date Activated Date Inactivated Comments 11/15/2023 10:22 PM 11/17/2023 2:49 PM Full CPR in case of cardiopulmonary arrest Care Teams Front Of House Manager Relationship Specialty Start Date End Date No, Physician PCP - General 05/21/24 Leela Osborne DO [address] [place] [address] Consulting Physician Obstetrics and Gynecology 11/19/23
[2024-10-08 13:53] VITALS: BP 142/94; PULSE 70; RESP 18; TEMP 36.8; O2SAT 100
--- NOTE | 2024-10-08 14:31 | ED_ITS ---
HPI - Skin/Abscess/Foreign Bdy General Chief complaint: Skin/Abscess/Foreign Body Stated complaint: pain at csection site from 10 months ago Time Seen by Provider: 10/08/24 14:10 History of Present Illness HPI narrative: 29-year-old otherwise healthy female presenting for evaluation of a scar that is bothering her. 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 She has never had any other abdominal surgeries besides the 10 months prior. She does that over last day she is having worsening pain at the incision site most so in the left side with heaping up of the edges of the wound. No inflamed area or any cellulitis. No skin changes in the area, no recent shaving. No intra-abdominal pain or pelvic pain. No urinary complaints. Notes that she was doing some heavy lifting over last few days at work and helping her family moved. Denies any injury at the time but states that it has been bothering her since then. Related Data Allergies Allergy/AdvReac Type Severity Reaction Status Date / Time No Known Allergies Allergy Verified 06/29/22 09:17 Review of Systems Review of Systems: As reviewed [facility] Past Medical History Medical History Ovarian cyst Surgical History Surgical History No pertinent past surgical history Social History Social History Smoking status: Never smoker Exam Narrative: GENERAL: [Well-appearing, well-nourished, and in no acute distress.] HEAD: [Normocephalic, atraumatic.] EYES: [PERRLA and EOMI.] ENT: Nares clear, no rhinorrhea or epistaxis. Mucous membranes moist. NECK: Supple. CHEST: [Clear to auscultation. No respiratory distress.] HEART: [Regular rate and rhythm]. No murmur heard. [Normal peripheral pulses.] ABDOMEN: [Soft, nondistended], [nontender], [No rigidity or guarding] EXTREMITIES: Normal range of motion. [No edema.] SKIN: Keloid formation asymmetrically on the scar and her Pfannenstiel incision previously. Left side has some heaped up wound margin edges but no obvious erythema, tenderness or dehiscence. Less keloid formation or heat up margins on the right side, no drainage or any purulence. No tenderness over the inguinal canal or any masses palpable. NEURO: [No focal deficits]. Alert and oriented [x3.] PSYCH: [Normal mood and affect.] Course Vital Signs Vital signs: Vital Signs Temperature 36.8 C 10/08/24 13:53 Pulse Rate 70 10/08/24 13:53 Respiratory Rate 18 10/08/24 13:53 Blood Pressure 142/94 H 10/08/24 13:53 Pulse Oximetry 100 10/08/24 13:53 Oxygen Delivery Room Air 10/08/24 13:53 Temperature 36.8 C 10/08/24 13:53 Pulse Rate 70 10/08/24 13:53 Respiratory Rate 18 10/08/24 13:53 Blood Pressure 142/94 H 10/08/24 13:53 Pulse Oximetry 100 10/08/24 13:53 Oxygen Delivery Room Air 10/08/24 13:53 MDM - Skin/Abscess/Foreign Bdy MDM Narrative Medical decision making narrative: 29-year-old female presenting for evaluation of her Pfannenstiel incision. C- section scar from 10 months prior, no chance of today. Notices that over last day or 2 she is having some worsening pain in her incision site after doing some heavy lifting at work and helping her family moved. Denies any tearing sensation or intra-abdominal or pelvic pain. She does have heaped up wound margins consistent with a keloid in her left-sided Pfannenstiel incision that is worse than the right side. Has history of keloids from previous piercing and other skin involvement. No dehiscence or any purulent drainage. No overlying skin changes or cellulitis or any evidence of folliculitis. Normal vital signs. Will obtain a CT scan without contrast to evaluate for other deep tissue or musculature involvement such as hematoma or wound dehiscence although very unlikely. Patient would likely benefit from topical therapy such as anti- inflammatories and regular outpatient OB follow-up. Patient comfortable this plan. Urine test ordered. CT scan shows a left ovarian cyst with recommendations for pelvic ultrasound. No evidence of any musculature hematomas, no ascites, no enlarged lymph nodes. Ultrasound was ordered and came back with a simple cyst with no further for follow-up needed. Patient was informed of this and stable for discharge home. Will be sent home with topical steroid cream. Medical Records Attestation: I reviewed the patient's medical records. Lab Data Attestation: I reviewed the patient's lab results. Labs: Lab Results 10/08/24 Range/Units 14:36 POC Urine HCG, Qual Negative (Negative) Imaging Data Attestation: I personally reviewed and interpreted this imaging study as follows: My impression: Impressions Abdomen/Pelvis CT 10/08/24 15:13 IMPRESSION: 1. 4.1 cm cyst in the left ovary, likely a follicular cyst. Torsion is not excluded. Consider pelvis ultrasound. Pelvis Ultrasound 10/08/24 16:20 IMPRESSION: Simple cyst within the left ovary for which no further follow-up is needed. Discharge Plan Discharge Clinical Impression: Keloid scar, Complication of section wound Patient Disposition: Home, Self-Care Condition: Stable Instructions: Antibiotic Form Additional Instructions: Your workup is reassuring, you have some keloid formation over your scar which is to be expected with your history of keloids. We will send you home with topical steroid cream to help keep this at [place] and keep the pain under control. Your workup shows a very simple appearing cyst with no recommendations for any further workup intervention, likely secondary to recent menstrual cycle. Follow-up with regular doctor in OBGYN outpatient. Return with any concerns. Patient Language: Djiboutian Prescriptions: New triamcinolone acetonide 0.1 % lotion 1 applic topical DAILY Qty: 60 0RF No Action Mucinex Fast-Max Dfes-Wkj-Akfr 1-11-631-200 mg capsule 2 tablet PO Q4-6H PRN (Reason: cold symptoms) Qty: 90 0RF Follow-up/Referrals: UNKNOWN,DOCTOR [Primary Care Provider] - Time of Disposition: 16:43
--- NOTE | 2024-10-08 14:37 | PC.NURSE ---
CT notified that pt. had a neg. bedside test and she is ready for CT.
[2024-10-08 14:39] LABS: BEDSIDEPREGUCG Negative (Negative)
--- OUTSIDE RECORDS SUMMARY | 2024-10-08 15:14 | XMS_ITS | Clinical Summary ---
Author Organization [facility] [address] Address [address] [place] [address] Phone Care Team Providers Care Yard Rigger Name Role Phone Leela Osborne DO Unavailable [phone] No, Physician Primary Care Provider [phone] Allergies No known active allergies Medications ondansetron [...] Screening Due: Pap Smear due referred to Table Runner Dietary and exercise recommendations given today. Recommend [...] Department Care Team Description 08/04/2024 12:20 AM NASCAR PIT CREW PERSON - 08/04/2024 3:52 AM NASCAR PIT CREW PERSON Emergency [facility] Emergency Department 1 [place] [address] Fredo Childress MD Acute left-sided back pain, [...] How often do you attend chur or judaism services? Patient declined 11/15/2023 Do you belong to any clubs o r organizations such as mosque groups, unions, fraternal or athletic groups, or [...] staff should administer the PHQ-9) 0 11/15/2023 [facility] of Occupat ional Health - Occupational Stress [...] place to sleep or slept in a skilled nursing (including now)? No 11/15/2023 [place] Depression Scale Answer Date Recorded [place] Depression Scale Total 0 01/01/2024 The thought [...] Comments Blood Pressure 138/70 08/03/2024 11:41 PM NASCAR PIT CREW PERSON Pulse 88 08/03/2024 11:41 PM NASCAR PIT CREW PERSON Temperature 37.2 C (99 F) 08/03/2024 11:41 PM NASCAR PIT CREW PERSON Respiratory Rate 18 08/03/2024 11:41 PM NASCAR PIT CREW PERSON Oxygen Saturation 98% 08/03/2024 11:41 PM NASCAR PIT CREW PERSON Inhaled Oxygen Concentration - - Weight 127 kg (280 lb) 08/03/2024 11:41 PM NASCAR PIT CREW PERSON Height 170.2 cm (5' 7 ) 08/03/2024 11:41 PM NASCAR PIT CREW PERSON Body Mass Index 43.85 08/03/2024 11:41 PM NASCAR PIT CREW PERSON Plan of Treatment Health Maintenance Due Date [...] OR MORE VIEWS ED 08/04/2024 1:10 AM NASCAR PIT CREW PERSON XR HAND LEFT 3 OR MORE VIEWS ED 08/04/2024 1:10 AM NASCAR PIT CREW PERSON HEPATITIS C ANTIBODY Routine 05/09/2023 1:58 PM CDT Encounter for supervision of normal first in first trimester 9 weeks gestation of PAP WITH REFLEX TO HIGH RISK HPV Routine 05/09/2023 10:34 AM CDT Screening for malignant neoplasm of cervix from Last 3 Months or Most Recently Relevant to Health Maintenance Results * XR Hand Left 3 or More Views (08/04/2024 1:10 AM NASCAR PIT CREW PERSON) Anatomical Region Laterality Modality Upper Extremities, Hand Left Computed Radiography 08/04/2024 1:17 AM NASCAR PIT CREW PERSON Narrative 08/04/2024 1:18 AM NASCAR PIT CREW PERSON EXAM DESCRIPTION: XR HAND LEFT 3 OR [...] Capo Ceballos M.D. AR: MONALISA Report ID: [id number] Reading Location: [id number] Procedure Note Capo Ceballos MD - 08/04/2024 [...] Capo Ceballos M.D. AR: MONALISA Report ID: [id number] Reading Location: [id number] Fredo Childress MD IMG XR PROCEDURES Final Resul t * XR Shoulder Left 2 or More Views (08/04/2024 1:10 AM NASCAR PIT CREW PERSON) Anatomical Region Laterality Modality Upper Extremities, Shoulder Left Comp uted Radiography 08/04/2024 1:18 AM NASCAR PIT CREW PERSON Narrative 08/04/2024 1:18 AM NASCAR PIT CREW PERSON EXAM DESCRIPTION: XR SHOULDER LEFT 2 OR [...] Capo Ceballos M.D. AR: MONALISA Report ID: [id number] Reading Location: [id number] Procedure Note Capo Ceballos MD - 08/04/2024 [...] Capo Ceballos M.D. AR: MONALISA Report ID: [id number] Reading Location: [place] [address] us Fredo Childress MD IMG XR PROCEDURES [...] MICROBIOLOGY - GENE RAL ORDERABLES Final Result [facility] [place] [address] * Pap with reflex to High Risk HPV and Genotyping (Cytology Component) (05/09/2023 10:34 AM CDT) Thin prep (Pap test) 05/09/2023 10:34 AM CDT 05/09/2023 10:34 AM CDT Narrative PATHOLOGY CH - 05/11/2023 11:00 AM CDT [facility] Department of Pathology [address] [place] [address] Final Report Note to Patients: This report [...] the details. Patient Name: NANETTE MONTANA Address: [address] [place] [address] Gender: F : 1995 (Age: 27) Service: Location: N : [id number] [facility] #: [id number] Patient Type: SPECIMEN Taken: 05/09/2023 Received: 05/09/2023 Accessioned:: 05/10/2023 Reported: 05/11/2023 Physician(s): Chasity Daniels D.O. Diagnosis: SOURCE OF SPECIMEN Imaged Thinprep Pap Test w/ Reflex HPV - Table Runner Cytologic Material: STATEMENT OF ADEQUACY - Specimen satisfactory for interpretation; endocervical/transformation zone component absent or insufficient GENERAL CATEGORIZATION: - Negative for intraepithelial lesion or malignancy ELICEO Norwood(ASCP) Report Electronically Reviewed and Signed Out By ELICEO Norwood(ASCP) 05/11/2023 11:00:49Specimen(s) Received: A: Imaged Thinprep Pap Test w/ Reflex HPV - Table Runner Cytologic Material Clinical History: Last Menstrual Period: [...] determined by the Surgical Pathology Department at [facility] as part of an ongoing quality assurance assistant program and in compliance with federally mandated [...] characteristics determined by the Surgical Pathology Department [facility]. It has not been cleared or approved by the U. S. Food and Drug Administration. Leela Osborne DO LAB CYTOLOGY ORDERABLES Final Result [facility] [address] [place] [address] from Last 3 Months or Most Recently Relevant to Health Maintenance Insurance [facility] Advance Directives For more information, please contact: [phone] * Full Code (Latest Code Status on File) Date Activated Date Inactivated Comments 11/17/2023 2:49 PM 11/19/2023 7:30 PM * Full Code Date Activated Date Inactivated Comments 11/15/2023 10:22 PM 11/17/2023 2:49 PM Full CPR in case of cardiopulmonary arrest Care Teams Yard Rigger Relationship Specialty Start Date End Date No, Physician PCP - General 05/21/24 Leela Osborne DO [address] [place] [address] Consulting Physician Obstetrics and Gynecology 11/19/23
--- OUTSIDE RECORDS SUMMARY | 2024-10-08 15:14 | XMS_ITS | Referral Summary ---
Author Organization [facility] [address] Address [address] [place] [address] Phone Care Team Providers Care Moccasin Sewer Name Role Phone Leela Osborne DO Unavailable [phone] No, Physician Primary Care Provider [phone] Encounters Date Type Department Care Team Description 08/04/2024 12:20 AM FAC ENGINEER - 08/04/2024 3:52 AM [facility] Emergency [facility] Emergency Department [address] [place] [address] Fredo Childress MD Acute left-sided [...] Screening Due: Pap Smear due referred to [facility] Dietary and exercise recommendations given today. Recommend [...] How often do you attend chur or jehovah's witness services? Patient declined 11/15/2023 Do you belong to any clubs o r organizations such as yazdanism groups, unions, fraternal or athletic groups, or [...] staff should administer the PHQ-9) 0 11/15/2023 [facility] - Occupational Stress [...] place to sleep or slept in a assisted (including now)? No 11/15/2023 Dickinson Depression Scale Answer Date Recorded Dickinson Depression Scale Total 0 01/01/2024 The thought [...] Comments Blood Pressure 138/70 08/03/2024 11:41 PM FAC ENGINEER Pulse 88 08/03/2024 11:41 PM FAC ENGINEER Temperature 37.2 C (99 F) 08/03/2024 11:41 PM FAC ENGINEER Respiratory Rate 18 08/03/2024 11:41 PM FAC ENGINEER Oxygen Saturation 98% 08/03/2024 11:41 PM FAC ENGINEER Inhaled Oxygen Concentration - - Weight 127 kg (280 lb) 08/03/2024 11:41 PM FAC ENGINEER Height 170.2 cm (5' 7 ) 08/03/2024 11:41 PM FAC ENGINEER Body Mass Index 43.85 08/03/2024 11:41 PM FAC ENGINEER Plan of Treatment Not on file Procedures Procedure Name Priority Date/Time Associated Diagnosis Comments XR SHOULDER LEFT 2 OR MORE VIEWS ED 08/04/2024 1:10 AM FAC ENGINEER XR HAND LEFT 3 OR MORE VIEWS ED 08/04/2024 1:10 AM FAC ENGINEER HEPATITIS C ANTIBODY Routine 05/09/2023 1:58 PM CDT Encounter for supervision of normal first in first trimester 9 weeks gestation of PAP WITH REFLEX TO HIGH RISK HPV Routine 05/09/2023 10:34 AM CDT Screening for malignant neoplasm of cervix from Last 3 Months or Most Recently Relevant to Health Maintenance Results * XR Hand Left 3 or More Views (08/04/2024 1:10 AM FAC ENGINEER) Anatomical Region Laterality Modality Upper Extremities, Hand Left Computed Radiography 08/04/2024 1:17 AM FAC ENGINEER Narrative 08/04/2024 1:18 AM FAC ENGINEER EXAM DESCRIPTION: XR HAND LEFT 3 OR [...] Capo Ceballos M.D. AR: MONALISA Report ID: [id number] Reading Location: [id number] Procedure Note Capo Ceballos MD - 08/04/2024 [...] Capo Ceballos M.D. AR: MONALISA Report ID: [id number] Reading Location: [id number] us Fredo Childress MD IMG XR PROCEDURES Final Resul t * XR Shoulder Left 2 or More Views (08/04/2024 1:10 AM FAC ENGINEER) Anatomical Region Laterality Modality Upper Extremities, Shoulder Left Comp uted Radiography 08/04/2024 1:18 AM FAC ENGINEER Narrative 08/04/2024 1:18 AM FAC ENGINEER EXAM DESCRIPTION: XR SHOULDER LEFT 2 OR [...] Capo Ceballos M.D. AR: MONALISA Report ID: [id number] Reading Location: [id number] Procedure Note Capo Ceballos MD - 08/04/2024 [...] Capo Ceballos M.D. AR: MONALISA Report ID: [id number] Reading Location: [id number] us Fredo Childress MD IMG XR PROCEDURES [...] GENE RAL ORDERABLES Final Result [facility] [id number] Department [place] [address] * Pap with reflex to High Risk HPV and Genotyping (Cytology Component) (05/09/2023 10:34 AM CDT) Thin prep (Pap test) 05/09/2023 10:34 AM CDT 05/09/2023 10:34 AM CDT Narrative PATHOLOGY CH - 05/11/2023 11:00 AM CDT [facility] Department of Pathology [address] [place], [place] [id number] Final Report Note to Patients: This report [...] the details. Patient Name: SVETA MONTANA Address: [address] [place] [address] Gender: F : 1995 (Age: 27) Service: Location: N : [id number] [facility] #: [id number] Patient Type: SPECIMEN Taken: 05/09/2023 Received: 05/09/2023 Accessioned:: 05/10/2023 Reported: 05/11/2023 Physician(s): Chasity Daniels D.O. Diagnosis: SOURCE OF SPECIMEN Imaged Thinprep Pap Test w/ Reflex HPV - [facility] Cytologic Material: STATEMENT OF ADEQUACY - Specimen satisfactory for interpretation; endocervical/transformation zone component absent or insufficient GENERAL CATEGORIZATION: - Negative for intraepithelial lesion or malignancy ELICEO Norwood(ASCP) Report Electronically Reviewed and Signed Out By ELICEO Norwood(ASCP) 05/11/2023 11:00:49Specimen(s) Received: A: Imaged Thinprep Pap Test w/ Reflex HPV - [facility] Cytologic Material Clinical History: Last Menstrual Period: [...] determined by the Surgical Pathology Department at [facility] as part of an ongoing senior quality assurance engineer program and in compliance with federally mandated [...] characteristics determined by the Surgical Pathology Department [facility]. It has not been cleared or approved by the U. S. Food and Drug Administration. Leela Osborne DO LAB CYTOLOGY ORDERABLES Final Result PATHOLOGY [id number] [place] [address] from Last 3 Months or Most Recently Relevant to Health Maintenance Insurance [facility] Advance Directives For more information, please contact: [phone] * Full Code (Latest Code Status on File) Date Activated Date Inactivated Comments 11/17/2023 2:49 PM 11/19/2023 7:30 PM * Full Code Date Activated Date Inactivated Comments 11/15/2023 10:22 PM 11/17/2023 2:49 PM Full CPR in case of cardiopulmonary arrest Care Teams Moccasin Sewer Relationship Specialty Start Date End Date No, Physician PCP - General 05/21/24 Leela Osborne DO [address] [place] [address] Consulting Physician Obstetrics and Gynecology 11/19/23
[2024-10-08 16:57] VITALS: BP 149/105; PULSE 83; RESP 16; O2SAT 100
== END 2024-10-08 16:58 | disposition home or self-care (01) ==
PROVIDERS: Emergency Provider Student in an Organized Health Care Education/Training Program
DX: L91.0 Hypertrophic scar (principal); Y83.8 Other surgical procedures as the cause of abnormal reaction of the patient, or of later complication, without mention of misadventure at the time of the procedure; N83.202 Unspecified ovarian cyst, left side
CPT/HCPCS: 74176; 76856; 81025; 99284